=== PATIENT | male | born 1960 | race Caucasian/White ===

== ENCOUNTER 2017-01-16 10:27 | Day surgery (SDC) | payer OTHER ==
[~2017-01-16] VITALS: Ht 185.4 cm; Wt 115.4 kg
[~2017-01-16 10:27] MED LIST: ALPR-138; DIGO0.123; FURO1TAB93; SIMV5TAB32; [UNRECOGNIZED DRUG - OTHER]
[2017-01-16] MEDS ORDERED: CHLORHEXIDINE GLUCONATE 2 % 1 PACK (2 CLOTHS) TOPICAL SCH (11:00)
[2017-01-16] MEDS ORDERED: NS 1000 ML IV SCH (11:00)
[2017-01-16] MEDS ORDERED: POVIDONE IODINE 5% (ANTISEPSIS KIT) 4 APPLICATIONS EACH NARE SCH (11:00)
[2017-01-16] MEDS ORDERED: INSULIN HUMAN REGULAR 1,000 UNITS/10 ML VIAL SQ PRN (11:00)
[2017-01-16] MEDS ORDERED: SODIUM CHLORID 0.9% 500 ML IV PRN (11:00)
[2017-01-16] MEDS ORDERED: VANCOMYCIN 1000 MG/NS 250 ML IV SCH ×2 (11:00)
[2017-01-16] MEDS ORDERED: MUPIROCIN 2% OINT 1 APPLIC/GM SYR NASAL SCH (11:00)
[2017-01-16] MEDS ORDERED: POVIDONE IODINE 5% (ANTISEPSIS KIT) 4 APPLICATIONS EACH NARE PRN (11:00)
[2017-01-16] MEDS ORDERED: ceFAZolin 2 GM PREMIX 50 ML IV SCH (11:00)
[2017-01-16] MEDS ORDERED: METOPROLOL TARTRATE 25 MG TAB PO PRN (11:00)
[2017-01-16] MEDS ORDERED: CHLORHEXIDINE GLUCONATE 2 % 1 PACK (2 CLOTHS) TOPICAL PRN (11:00)
[2017-01-16] MEDS ORDERED: LACTATED RINGER'S 1000 ML IV PRN (11:00)
[2017-01-16 11:17] VITALS: BP 149/94; PULSE 60; RESP 17; TEMP 97.8; O2SAT 95
[2017-01-16 11:30] LABS: AUTOMATED NEUTROPHIL # 4.8 TH/MM3 (1.8-7.7); BASOPHIL # 0.1 TH/MM3 (0-0.2); BASOPHIL % 1.1 % (0.0-2.0); EOSINOPHIL # 0.2 TH/MM3 (0-0.4); EOSINOPHIL % 2.3 % (0.0-4.0); HEMATOCRIT 36.8 % (39.0-51.0); HEMO FLAGS DIFF FINAL; LYMPH % 30.2 % (9.0-44.0); LYMPHOCYTE # 2.6 TH/MM3 (1.0-4.8); MEAN CELL VOLUME 85.4 FL (80.0-100.0); MEAN CORPUSCULAR HEMOGLOBIN 29.1 PG (27.0-34.0); MONO % 9.6 % (0.0-8.0); NEUT % 56.8 % (16.0-70.0); PLATELET COUNT 179 TH/MM3 (150-450); RED BLOOD COUNT 4.32 MIL/MM3 (4.50-5.90); RED CELL DISTRIBUTION WIDTH 15.4 % (11.6-17.2); WHITE BLOOD COUNT 8.5 TH/MM3 (4.0-11.0)
[2017-01-16] MEDS ORDERED: HYDR-3799 PO (11:34)
[2017-01-16] MEDS ORDERED: ATOR1TAB18 PO (11:34)
[2017-01-16] MEDS ORDERED: CLOP75TA PO (11:34)
[2017-01-16] MEDS ORDERED: CLON0.1T PO (11:34)
[2017-01-16] MEDS ORDERED: VITA100036 PO (11:34)
[2017-01-16] MEDS ORDERED: CALC250T PO (11:34)
[2017-01-16] MEDS ORDERED: NOVOINJ3 SQ (11:34)
[2017-01-16] MEDS ORDERED: PRED20 PO (11:34)
[2017-01-16] MEDS ORDERED: CARV25TA PO (11:34)
[2017-01-16] MEDS ORDERED: FURO40TA PO (11:34)
[2017-01-16] MEDS ORDERED: ASPI81TA5 PO (11:34)
[2017-01-16] MEDS ORDERED: POTA-163 PO (11:34)
[2017-01-16] MEDS ORDERED: ISOS120T PO (11:34)
[2017-01-16] MEDS ORDERED: AMLO10TA2 PO (11:34)
[2017-01-16] MEDS ORDERED: LANTUS2P SQ (11:34)
[2017-01-16 11:39] LABS: APTT (PATIENT) 25.1 SEC (24.3-30.1); PROTHROMBIN TIME - PATIENT 10.5 SEC (9.8-11.6)
[2017-01-16 11:55] LABS: BICARBONATE 32.5 MEQ/L (21.0-32.0)
[2017-01-16 11:58] LABS: POTASSIUM 2.8 MEQ/L (3.5-5.1)
[2017-01-16] MEDS ORDERED: ONDANSETRON HCL 4 MG/2 ML VIAL IV PUSH ONE (12:00)
[2017-01-16] MEDS ORDERED: SODIUM CHLORID 0.9% 500 ML INJ 1,000 ML IV ONE (12:00)
[2017-01-16] MEDS ORDERED: PROPOFOL 200 MG/20 ML AMP IV ONE (12:00)
[2017-01-16] MEDS ORDERED: EPINEPHrine HCL (1:1000) 1 MG/ML VIAL IV ONE (12:00)
[2017-01-16] MEDS ORDERED: POTASSIUM CHLOR 20 MEQ PREMIX 200 ML ONE (12:51)
[2017-01-16] MEDS ORDERED: KETAMINE HCL 500 MG/5 ML VIAL ONE (13:03)
[2017-01-16] MEDS: POTASSIUM CHLOR 20 MEQ PREMIX 100 ML IV SCH ×2 (13:15→16:00)
[2017-01-16] MEDS ORDERED: LIDOCAINE HCL 2% 50 ML VIAL ONE (13:17)
[2017-01-16] MEDS ORDERED: VANCOMYCIN 500 MG VIAL ONE (13:17)
[2017-01-16] MEDS ORDERED: HEPARIN-NS/PF INJ 1,000 ML ONE (13:17)
[2017-01-16] MEDS ORDERED: ISOPROTERENOL HCL 1 MG/5 ML AMP ONE (13:23)
[2017-01-16] MEDS ORDERED: SODIUM CHLOR 0.9% 250 ML INJ 250 ML ONE (13:24)
[2017-01-16] MEDS ORDERED: PROPOFOL 200 MG/20 ML AMP ONE ×4 (13:40→15:36)
--- NOTE | 2017-01-16 14:27 | CATHPROC ---
[employer] HIS Report Study Information Study Number Admission Scheduled Start Study Start [id number] Jan 16 2017 10:27AM 01/16/2017 Jan 16 2017 12:45PM [place] [facility] Cardiac Pacer/ICD Admit Source Facility Department Other [facility] - Occupational Therapist Physician and Clinical Staff Initial Ruperto Hsu Canary Raiser Cedric Winkler,RT(R) Other Anesthesia, VIDEO SPECIALIST Recorder Sara Dominguez,LADARIUS Scrub Pacheco Rollins RCIS(BS) Equipment Time Gullet Slitter Description Size Mfg Part Number Used/Scraped 13:24 CONMED LEADWIRE, DEFIBRILLATION PAD 2001M-PC Used [id number] 13:24 MEDLINE INDUSTRIES PACK, CCL CUSTOM * Used *[id number] 13:24 F-Origin PACER TOBIAS, LIMB * 2530 *[id number] Used [id number] 13:24 Phizzbo MEDICAL BLANKET,WARM AIR CCL * Used *[id number] 13:24 ST. TREVA MEDICAL CATHETER, JSN, QUAD FR 5 Used *[id number] 13:24 ST[employer] TREVA MEDICAL CATHETER, JSN, QUAD FR 5 Used *[id number] 13:24 ST[employer] TREVA MEDICAL CATHETER, JSN, QUAD FR 5 Used *[id number] 13:24 ST. TREVA MEDICAL ELECTRODE KIT, SILVANO X SURFACE * [id number] 13:24 [address] TREVA MEDICAL SHEATH, EPS, FR7 FAST CATH FR 7 [id number] Used 13:24 [employer] TREVA MEDICAL SHEATH, EPS, FR7 FAST CATH FR 7 [id number] Used 13:24 [address] TREVA MEDICAL SHEATH, EPS, FR7 FAST CATH FR 7 [id number] Used [place] PAD, ELECTROSURGICAL 13:24 * E7506 *[id number] Used SURGICAL GROUNDING (BLUE) [place] PAD, ELECTROSURGICAL 13:24 * E7506 *[id number] Used SURGICAL GROUNDING (BLUE) History: Allergies Allergy Reaction No Known Allergies nitroglycerin History: Risk Factors Hypertension Dyslipidemia Previous Heart Failure Yes Yes Yes Diabetes Labs Hgb (g/dl) Hct (%) RBC (MIL/MM3) WBC (l/cumm) Platelets (thousands) 11.60-17.00 35.00-51.00 4.00-5.90 4.00-11.00 150.00-450.00 12.0 36 4.3 8.5 179 Glucose (mg/dl) BUN (mg/dl) Creatinine (mg/dl) BUN:Creatinine (1:x) 74.00-106.00 7.00-18.00 0.50-1.30 10.00-20.00 147 34 1.9 17.9 Na (meq/l) K (meq/l) 136.00-145.00 3.50-5.10 144 2.8 INR (PTT:PT) 0.90-1.10 1 Medication Medication Total Dose (Bolus/Oral) Medication Total Dosage/Unit 1% XYLOCAINE 20 mL Medications (Bolus/Oral) Medication Time Given Dosage/Unit Administered By Reason 1% XYLOCAINE 01/16/2017 1:48:53 PM 20 mL Ruperto Jaquez 20 mL 1% XYLOCAINE given in lab by Ruperto Jaquez in Right Groin via Subcutaneous. Ordered by Ruperto Waggoner. Medication (Drip) Medication Time Given Dosage/Unit Concentration/Unit Diluent (ml) Solution ISUPREL 01/16/2017 2:12:11 PM 1 mcg/min 1 mg 250 NaCl .9 1 mcg/min ISUPREL given in lab by Ruperto Jaquez in Right Forearm via Peripheral IV. Pump/Drip Flow = 15 ml/hr using NaCl .9 with a concentration of 1 mg in 250 ml. Ordered by Ruperto Jaquez. Reason: As per physicians verbal order. Initial Case Assessment Cardiovascular HR Rhythm NIBP Chest Pain 62 sr 164/79 0 Edema Present Skin color Skin None Normal Warm Dry Circulatory - Right Pulses Dorsalis Pedis Radial 1 1 Scale (0,1,2,3,4,d) Circulatory - Left Pulses Dorsalis Pedis Radial 1 1 Scale (0,1,2,3,4,d) Circulatory - Lower Extremities Color Lower Right Color Lower Left Normal Normal Neurological State Oriented to time-place- Alert Moves all extremities person Respiration - General Respiration Rate SpO2 (%) (B/min) 20 97 Chronological Log Time Study Chronological Log 13:05:41 Patient arrived via Bed. 13:05:42 Patient Name, D.O.B, / Armband Verified By R.N. 13:05:43 Consent signed by the physician and the patient and verified by the Occupational Therapist staff. 13:05:48 Pre-op and post- op instructions given; patient acknowledges understanding of instructions. 13:06:09 Verbal Stimulation=2 Physical Stimulation=2 Airway=2 Respiration=2 TOTAL=8. (0=absent, 1=li mited, 2=present) 13:06:18 Anesthesia at bedside. Assumes care of patientKevin Barnes 13:06:20 Presedation assessment performed by Occupational Therapist RN. 13:06:21 Patient has been NPO for More than 6Hrs. 13:06:22 Skin Breakdown/none per patient 13:06:31 Patient Warmer Placed on the Table. 13:06:32 Disposable Defibrillator Pads Placed On Patient. 13:06:32 Hardy Prominences Protected 13:19:51 A # 20 IV was noted in the Antecubital (left). Grade = 0 0.9ns kvo KCL infusing on pump fro m Docu. 13:19:51 A # 20 IV was noted in the Forearm (right). Grade = 0 0.9ns kvo 13:19:53 History and physical on the chart or being dictated. 13:19:55 Table restraints applied according to hospital policy 13:19:59 2% CHLORHEXIDINE GLUCONATE WASH AND NASAL SWIPE DONE PRIOR TO PROCEDURE. 13:20:03 Bilateral groins prepped with 2% chlorhexidine, and draped after a 3 minute waiting time. Assessment: Initial Case, HR=62 BPM, Rhythm=sr, EIFC=092/79 mmhg, Chest Pain=0, Edema=None, Col or=Normal, Skin = Warm, Dry Right Pulses: Merritt Ped=1, Radial=1 Left Pulses: Merritt Ped=1, Radial=1 13:20:11 Lower Right Extremities: Color=Normal Lower Left Extremities: Color=Normal Neurological: State=Alert, Ox3, SERRANO Respiration: Resp=20 B/min, SpO2=97 % 13:21:46 MD paged 13:34:09 Reference ECG taken 13:34:15 MD arrived. Time Out. Correct patient, procedure, procedure equipment, site and side verified with physicia n present. Time 13:48:00 concurred by MD, individual staff and VIDEO SPECIALIST. 13:48:06 Immediate Presedation assesment performed by physician. Time Out #2 - Consents verified, patient in correct position, all results are labled and displa yed, safety precautions 13:48:11 taken, antibiotics administered. Time out concurred by MD, individual staff and VIDEO SPECIALIST in procedu re 13:48:43 Case Start 13:48:53 20 mL 1% XYLOCAINE given in lab by Ruperto Jaquez in Right Groin via Subcutaneous. Ordered by Ruperto Jaquez. 13:52:00 Vascular access was obtained in the Fem Vein (right). 13:52:31 Vascular access was obtained in the Fem Vein (right). 13:52:43 Vascular access was obtained in the Fem Vein (right). 13:53:00 A SHEATH, EPS, FR7 FAST CATH FR 7 was advanced into the Fem Vein (right) using the Modified Seldinger technique. 13:53:20 A SHEATH, EPS, FR7 FAST CATH FR 7 was advanced into the Fem Vein (right) using the Modified Seldinger technique. 13:53:28 A SHEATH, EPS, FR7 FAST CATH FR 7 was advanced into the Fem Vein (right) using the Modified Seldinger technique. A CATHETER, JSN, QUAD FR 5 was advanced vis Fem Vein (right) and placed in the HIS. Placement w as visually 13:56:50 confirmed under fluoroscopy. A CATHETER, JSN, QUAD FR 5 was advanced vis Fem Vein (right) and placed in the CS. Placement wa s visually 13:57:01 confirmed under fluoroscopy. A CATHETER, JSN, QUAD FR 5 was advanced vis Fem Vein (right) and placed in the RVA. Placement w as visually 13:57:10 confirmed under fluoroscopy. 14:05:03 EPS in progress. 1 mcg/min ISUPREL given in lab by Ruperto Jaquez in Right Forearm via Peripheral IV. Pump/Drip Flow = 15 ml/hr 14:12:11 using NaCl .9 with a concentration of 1 mg in 250 ml. Ordered by Ruperto Jaquez. Reason: A s per physicians verbal order. 14:20:45 Isuprel gtt discontinued. 14:21:10 EP study completed. 14:21:50 EP Procedure was performed. 14:22:11 EP catheters removed. 14:24:06 Sheaths removed by Vicky . Pressure applied, and hemostasis achieved. 14:26:00 Case End ::43 No case complications noted. 14:26:45 Cine recording checked. 14:27:00 NOTE: This patient is undergoing an additional procedure while still in the Cardiac Cath La b. 14:39:28 Sterile dressing applied to site End Study - Contrast Media Used In Study Contrast Total Opened (mL) Total Used (mL) Total Wasted (mL) Unspecified 0 0 0 End Study - Maximum Contrast Load Max Contrast Load (mL) 305.3 End Study - Radiation Exposure Fluoro Time (minutes) 4.3 End Study - Sheaths Sheaths Pulled By Sheath Hold Time (min) Pacheco Rollins 15 End Study - Patient Disposition Complications Transferred To Interventional Outcome No Occupational Therapist Holding successful
--- NOTE | 2017-01-16 15:59 | EKG ---
Date Performed: 01/16/2017 Time Performed: 11:21:34 PTAGE: 56 years EKG: Sinus rhythm . Left axis deviation RBBB with left anterior fascicular block Possible inferior infarct - age undete rmined Possible LVH with secondary repolarization abnormality Lateral ST-T changes are probably due t o ventricular hypertrophy Abnormal ECG PREVIOUS TRACING : 08/26/2006 14.42 Compared to prior tracing no significant change DOCTOR: Chivo Reese Interpretating Date/Time 01/16/2017 15:58:36
--- NOTE | 2017-01-16 16:13 | CATHPROC ---
[email or web address] HIS Report Study Information Study Number Admission Scheduled Start Study Start [id number] Jan 16 2017 10:27AM 01/16/2017 Jan 16 2017 2:28PM [place] [facility] Electrophysiology Study Admit Source Facility Department Other [facility] - Carbide Grinder Physician and Clinical Staff Initial Ruperto Hsu Sports Athletic Trainer Abena Amaya,ORCHID TRANSPLANTER Sports Athletic Trainer Pacheco Rollins RCIS(BS) Other Anesthesia, INTELLIGENCE ANALYST Other Debbie Haq BSRN Recorder Sara Dominguez RN Scrub Cedric Winkler RT(R) Procedures Performed Procedure Lead Insertion Equipment Time Cocoa Milling Machine Operator Description Size Mfg Part Number Used/Scraped 14:32 AADCO MEDICAL DRAPE, [place] X-RAY 12X17 12X17 D-100 *[id number] Used 14:33 AADPhotoFix UK MEDICAL DRAPE, [place] X-RAY 12X17 12X17 D-100 *[id number] Used MPIS-502-10.0- INTRODUCER SET, 14:33 COOK INC. FR 5 SC-NT-U-SST Used MICROPUNCTURE, STIFFENED *[id number] MPIS-502-10.0- INTRODUCER SET, 14:33 [employer]OOK INC. FR 5 SC-NT-U-SST Used MICROPUNCTURE, STIFFENED *[id number] MPIS-502-10.0- INTRODUCER SET, 14:33 COOK INC. FR 5 SC-NT-U-SST Used MICROPUNCTURE, STIFFENED *[id number] 14:32 CromoUp DRAPE, IOBAN 2 [id number] 26cm x 20cm Used *[id number] TP-1103 14:33 [employer]oUp SUTURE, STRIP PLUS 1/2" * Used *[id number] 14:33 MEDLINE PACER ADHESIVE, MASTISOL 2/3CC 2/3CC 0523-48 Used 14:33 MEDLINE PACER TOBIAS, LIMB * 2530 *[id number] Used [id number] 14:33 MEDLINE PACER PACK, PACER CUSTOM * Used *[id number] 14:33 MEDLINE PACER PEN, SKIN DUAL W/ RULER * Used *[id number] 15:18 [employer] PACER SAFE SHEATH, FR9, 13CM FR 9 [id number] Used PROBE COVER, STERILE [id number] 14:33 [employer] * Used ULTRASOUND W/ GEL *[id number] 14:42 Needle Sponge Count 2 22 Used 14:42 Needle Sponge Count 25 1 Used 14:54 Needle Sponge Count 3 33 Used 15:12 Needle Sponge Count 30 1 Used 14:42 Needle Sponge Count 6 6 Used [id number] *[id number] SUTURE, 0 ETHIBOND [CT1] (CX21D), 8pk SUTURE, 2-0 VICRYL [CT1] ([id number]) SUTURE, 2-0 VICRYL [CT1] (UNX880W) SUTURE, 4-0 VICRYL [PS2] (QJV044X) [id number] 14:33 ALEX MEDICAL BLANKET,WARM AIR CCL * Used *[id number] [facility] PAD, ELECTROSURGICAL 14:33 * E7507 *[id number] Used SURGICAL GROUNDING ORANGE DEFIBRILLATOR, EVERA MRI XT 15:35 VITATRON MEDTRONIC DDE-DDDR [id number] Used DR LEAD, CAPSURE FIX NOVUS, 4076-45CM 15:23 VITATRON MEDTRONIC 45CM Used 45CM *[id number] LEAD, SPRINT QUATTRO SECURE 15:19 VITATRON MEDTRONIC * 6947M-62CM Used 62CM 15:19 VITATRON MEDTRONIC MONITOR, PACEMAKER\\ICD 15349Y Used 0630-2051 14:33 ZOLL MEDICAL HARJINDER. / * Used *07520 Equipment Model, Serial, Lot Number and Expiration Data Description Model Number Serial Number Lot Number Expiration Da te DEFIBRILLATOR, EVERA MRI XT DR [id number] 01-28-2018 LEAD, CAPSURE FIX NOVUS, 45CM 4076-45 [id number] 11-16-2018 LEAD, SPRINT QUATTRO SECURE 6947-62 [id number] 09-09-2018 62CM History: Allergies Allergy Reaction No Known Allergies nitroglycerin History: Risk Factors Hypertension Dyslipidemia Previous Heart Failure Yes Yes Yes Diabetes Medication Medication Total Dose (Bolus/Oral) Medication Total Dosage/Unit 2% XYLOCAINE 50 mL Medications (Bolus/Oral) Medication Time Given Dosage/Unit Administered By Reason 2% XYLOCAINE 01/16/2017 3:00:25 PM 50 mL Ruperto Jaquez As per physicians ve rbal order 50 mL 2% XYLOCAINE given in lab by Ruperto Jaquez via Subcutaneous. Ordered by Ruperto Jaquez. Reas on: As per physicians verbal order. left upper chest Medication (Drip) Medication Time Given Dosage/Unit Concentration/Unit Diluent (ml) Solution ANCEF 01/16/2017 1:10:46 PM 2 g 2 g ANCEF given in lab by Anesthesia, INTELLIGENCE ANALYST via Peripheral IV. Ordered by Ruperto Jaquez. Reason: As per physicians verbal order. VANCOMYCIN DRIP 01/16/2017 1:10:41 PM 1 g 1 g VANCOMYCIN DRIP given in lab by Anesthesia, INTELLIGENCE ANALYST via Peripheral IV. Ordered by Ruperto Jaquez. R ada: As per physicians verbal order. Final Case Assessment Cardiovascular HR NIBP Chest Pain 56 148/83 0 Edema Present Skin color Skin None Normal Warm Dry Circulatory - Right Pulses Dorsalis Pedis Radial 1 1 Scale (0,1,2,3,4,d) Circulatory - Left Pulses Dorsalis Pedis Radial 1 1 Scale (0,1,2,3,4,d) Circulatory - Lower Extremities Color Lower Right Color Lower Left Normal Normal Neurological State Oriented to time-place- Alert Moves all extremities person Respiration - General Respiration Rate SpO2 (%) (B/min) 18 100 Chronological Log Time Study Chronological Log 1 g VANCOMYCIN DRIP given in lab by Mitch, INTELLIGENCE ANALYST via Peripheral IV. Ordered by Jeremy Jaquez Reason: As 13:10:41 per physicians verbal order. 2 g ANCEF given in lab by Anesthesia, INTELLIGENCE ANALYST via Peripheral IV. Ordered by Ruperto Jaquez. Reaso n: As per physicians 13:10:46 verbal order. 14:29:00 NOTE: This patient is undergoing an additional procedure while still in the Cardiac Cath La b. 14:29:15 Anesthesia remains at bedside. 14:30:26 Bovie ground pad applied to: right thigh 14:31:15 2% CHLORHEXIDINE GLUCONATE WASH AND NASAL SWIPE DONE PRIOR TO PROCEDURE. First Sponge And Instrument Count Done by Cedric Winkler, RT(R). 14:34:45 Hypo's: 6, Sponges: 45 total, Bovie/scratch: 3 Sutures: 11, Blades: 2, Instruments: 26, Syveck Patches: 0 14:35:43 Reference ECG taken 14:52:17 MD paged 14:54:28 Reference ECG taken 14:55:10 MD arrived. Time Out. Correct patient, procedure, procedure equipment, site and side verified with physicia n present. Time 15:00:00 concurred by MD, individual staff and INTELLIGENCE ANALYST. Time Out #2 - Consents verified, patient in correct position, all results are labled and displa yed, safety precautions 15:00:19 taken, antibiotics administered. Time out concurred by MD, individual staff and INTELLIGENCE ANALYST in procedu re 15:00:23 Case Start 50 mL 2% XYLOCAINE given in lab by Ruperto Jaquez via Subcutaneous. Ordered by Ruperto Jaquez . Reason: As per 15:00:25 physicians verbal order. left upper chest 15:02:39 Surgical Incision Made. 15:05:36 A pocket was created at the L Upper Chest. 15:13:59 Vascular access was obtained in the Subclav. Vein (Lft. Micropuncture 15:14:26 Dilator exchanged. 15:16:40 2nd Vascular access was obtained in the Subclav. Vein (Lft. micropuncture 15:17:40 A SAFE SHEATH, FR9, 13CM FR 9 was advanced into the Subclav. Vein (Lft using the Modified S eldinger technique. 15:20:08 A LEAD, SPRINT QUATTRO SECURE 62CM * was inserted and positioned in the RV. 15:21:00 Lead placement verified under fluoroscopy 15:21:23 The RV lead impedance and threshold being tested. 15:23:11 The RV lead was sutured to the fascia. 15:24:05 A LEAD, CAPSURE FIX NOVUS, 45CM 45CM was inserted and positioned in the RA. 15:30:00 Lead placement verified under fluoroscopy 15:30:43 The Atrial lead impedance and threshold is being tested. 15:31:51 The Atrial lead was sutured to the fascia. 15:32:00 Two antibiotic sponges put into the surgical pocket. 15:35:58 A DEFIBRILLATOR, EVERA MRI XT DDE-DDDR was connected and placed in the pocket. 15:39:48 Jono powder in pocket Second Sponge And Instrument Count Done by Cedric Winkler, RT(R). 15:42:19 Hypo's: 6, Sponges: 45, Bovie/scratch: 3 Sutures: 11, Blades: 2, Instruments: 26, Syveck Patches: 0 15:43:56 Implant Procedure was performed. 15:44:03 A ICD Implant . (Dual) 15:52:53 The pocket was closed. 15:56:12 DOCU called. Spoke to Harry 15:56:51 Bedside Report will be given. 16:09:49 Case End Final Sponge And Instrument Count Done by Cedric Winkler RT(R). 16:11:00 Hypo's: 6, Sponges: 45, Bovie/scratch: 3 Sutures: 11, Blades: 2, Instruments: 26, Syveck Patches: 0 Assessment: Final Case, HR=56 BPM, SCXM=257/83 mmhg, Chest Pain=0, Edema=None, Color=Normal, Sk in = Warm, Dry Right Pulses: Merritt Ped=1, Radial=1 Left Pulses: Merritt Ped=1, Radial=1 16:11:08 Lower Right Extremities: Color=Normal Lower Left Extremities: Color=Normal Neurological: State=Alert, Ox3, SERRANO Respiration: Resp=18 B/min, NmG2=866 % 16:16:08 Patient moved to stretcher 16:20:14 A sling was placed on the affected arm. 15:39:30 Antibiotic sponges removed from the surgical pocket. End Study - Contrast Media Used In Study Contrast Total Opened (mL) Total Used (mL) Total Wasted (mL) Unspecified 0 0 0 End Study - Radiation Exposure Fluoro Time (minutes) 1.9 End Study - Patient Disposition Complications Transferred To Interventional Outcome No Telemetry Bed successful
[2017-01-16] MEDS ORDERED: TEMAZEPAM 15 MG CAP PO PRN (17:45)
[2017-01-16] MEDS: hydrALAZINE HCL 25 MG TAB PO SCH ×2 (17:59→22:10)
[2017-01-16] MEDS: cloNIDine HCL 0.1 MG TAB PO SCH (17:59)
[2017-01-16] MEDS: oxyCODONE/ACETAMINOPHEN 5 MG/325 MG TAB PO PRN ×2 (18:00→22:10)
[2017-01-16] MEDS ORDERED: MORPHINE SULFATE 4 MG/ML INJ ONE (18:30)
--- NOTE | 2017-01-16 18:51 | RADRPT ---
EXAM DATE/TIME: 01/16/2017 18:07 [place] COMPARISON: No previous studies available for comparison. INDICATIONS : Pneumothorax. Hematoma. Post procedure. MEDICAL HISTORY : None. SURGICAL HISTORY : None. ENCOUNTER: Initial ACUITY: 1 day PAIN SCORE: 4/10 LOCATION: Left chest FINDINGS: The heart size is enlarged. There is a pacing/AICD device in place from the left subclavian approach. The lungs are grossly clear. A pneumothorax is not seen. No effusion is seen. CONCLUSION: 1. Cardiomegaly. 2. Pacing/AICD device in place from the left subclavian approach. Pasquale Kruse MD on January 16, 2017 at 18:49 Board Certified Radiologist. This report was verified electronically.
[2017-01-16] MEDS ORDERED: MORPHINE SULFATE 4 MG/ML INJ IV ONE (19:00)
[2017-01-16 20:00] VITALS: BP 166/93; PULSE 61; RESP 18; TEMP 97.8; O2SAT 95
[2017-01-16] MEDS: ceFAZolin 2 GM PREMIX 50 ML IV SCH (20:45)
[2017-01-16] MEDS: CARVEDILOL 12.5 MG TAB PO SCH (20:45)
[2017-01-16 21:00] VITALS: PULSE 68
[2017-01-16] MEDS: LOW DOSE INSULIN NOVOLOG SUPPLEMENTAL SCALE SQ SCH (21:00)
[2017-01-16] MEDS ORDERED: ATORVASTATIN 80 MG TAB PO SCH (21:00)
[2017-01-16 22:00] VITALS: PULSE 66
[2017-01-16] MEDS ORDERED: GLUCAGON 1 MG/ML VIAL OTHER PRN (22:45)
[2017-01-16] MEDS ORDERED: DEXTROSE 50% IN WATER 50 ML VIAL(D50) IV PUSH PRN (22:45)
[2017-01-16 23:00] VITALS: BP 160/87; PULSE 64; RESP 18; TEMP 97.8; O2SAT 95
[2017-01-17] VITALS (16 sets, daily range): BP systolic 148–175; BP diastolic 86–99; PULSE 58–66; RESP 12–24; TEMP 97.7–98; O2SAT 92–95
[2017-01-17] MEDS ORDERED: VANCOMYCIN INJ 1,000 MG in SODIUM CHLOR 0.9% 250 ML INJ 250 ML IV ONE (01:00)
[2017-01-17] MEDS: oxyCODONE/ACETAMINOPHEN 5 MG/325 MG TAB PO PRN ×2 (01:43→06:46)
[2017-01-17] MEDS ORDERED: cloNIDine HCL 0.1 MG TAB PO SCH (03:45)
[2017-01-17] MEDS ORDERED: MORPHINE SULFATE 4 MG/ML INJ IV PRN (03:45)
[2017-01-17] MEDS: MORPHINE SULFATE 4 MG/ML INJ IV PRN ×3 (03:49→12:35)
[2017-01-17] MEDS ORDERED: hydrALAZINE HCL 25 MG TAB PO SCH (04:45)
[2017-01-17] MEDS: ceFAZolin 2 GM PREMIX 50 ML IV SCH ×2 (04:51→12:38)
[2017-01-17] MEDS: LOW DOSE INSULIN NOVOLOG SUPPLEMENTAL SCALE SQ SCH ×2 (08:00→12:36)
--- NOTE | 2017-01-17 08:11 | EKG ---
Date Performed: 01/16/2017 Time Performed: 18:38:36 PTAGE: 56 years EKG: Sinus rhythm . Left axis deviation IV conduction defect Possible inferior infarct - age undetermined Possible LVH with secondary repolarization abnormality Anterolateral ST-T changes are probably due to ventricular hypertrophy Abnormal ECG Compared to prior tracing no significant change PREVIOUS TRACING : 01/16/2017 11.21 DOCTOR: Jenni Smith Interpretating Date/Time 01/17/2017 08:09:47
--- NOTE | 2017-01-17 08:15 | MR ---
cc: NINA COLLINS DATE: 01/16/2017 INDICATION Congestive heart failure, class II. PROCEDURE PERFORMED 1. Comprehensive electrophysiology study with right atrial and right ventricular pacing and sensing. 2. Coronary sinus stimulation with coronary sinus pacing and sensing. 3. IV isoproterenol administration for tachycardia induction. ACCESS SITE Right femoral vein using ultrasound guidance. MEDICATIONS Isuprel IV. SEDATION Administered by Anesthesia. EQUIPMENT USED Quadripolar catheter x3. COMPLICATIONS None. ESTIMATED BLOOD LOSS Less than 10 cc. METHOD OF HEMOSTASIS Sheath left in place. RESULTS 1. Baseline EKG: Normal sinus rhythm, left axis, right bundle branch block with left anterior fascicular block (QRS 130 milliseconds). 2. Baseline intervals (milliseconds): Baseline cycle length 912, LA 186, QRS 118, QT 436, QTC 457, AH 84, HV 70. 3. Right atrial programmed stimulation: Right atrial programmed stimulation was performed at baseline. AP Wenckebach was 400 milliseconds. No atrial arrhythmias were induced. 4. Coronary sinus stimulation: Coronary sinus stimulation was performed at baseline. No arrhythmias were induced. 5. Right ventricle programmed electrical stimulation: Baseline RVRP 600/260/290. 500/260/290. 400/240/270. Closest coupling intervals: 600/290/180. 500/290/180. 400/270/180. 600/290/210/200. 500/290/210/180. 400/270/210/180. 6. On isoproterenol: RVRP 400/260/290. Closest coupling intervals: 600/290/210/200. 7. Arrhythmias: No inducible atrial arrhythmias. No inducible sustained ventricular arrhythmias. DIAGNOSIS 1. No inducible sustained ventricular arrhythmias. 2. No inducible sustained atrial arrhythmias. 3. HV interval 70 milliseconds. DISPOSITION Mr. Keys will undergo placement of implantable defibrillator. MD PEPE Ramirez/JOSE /3:58 PM /8:02 AM
[2017-01-17] MEDS: cloNIDine HCL 0.1 MG TAB PO SCH ×2 (08:36→12:37)
[2017-01-17] MEDS: CARVEDILOL 12.5 MG TAB PO SCH (08:36)
[2017-01-17] MEDS: hydrALAZINE HCL 25 MG TAB PO SCH ×2 (08:40→12:37)
--- NOTE | 2017-01-17 08:49 | MR ---
cc: NINA COLLINS DATE: 01/16/2017 INDICATION Ischemic cardiomyopathy, congestive heart failure class II, ejection fraction 25% (October 2016). The patient is on maximum tolerated guideline-directed medical therapy. Atrial lead placed for supraventricular tachycardia discrimination. PROCEDURE PERFORMED 1. Placement of Medtronic dual-chamber defibrillator. 2. Testing of Medtronic dual-chamber defibrillator system. ACCESS SITE Left subclavian vein. EQUIPMENT USED Generator: Medtronic model [id number] dual-chamber MRI compatible defibrillator, serial number [id number]. Right atrial lead: Medtronic model 695055, screw-in 45 cm atrial lead, serial number [id number]. Right ventricular lead: Medtronic model 2777N26, 62 cm screw-in right ventricular lead, serial number [id number]. LEAD TESTING Right atrial lead: Pacing threshold 0.8 volts at 0.5 milliseconds. Lead impedance 610 ohms. P-wave 4.8 millivolts. Right ventricular lead: Pacing threshold 0.4 volts at 0.5 milliseconds. Lead impedance 522 ohms. R-wave 9.4 millivolts. Ventricular fibrillation was induced on one occasion and terminated with a single 20 joule shock with an impedance of 36 ohms resulting in sinus rhythm. Parameters: Mode AAIR/DDDR, lower rate 40, upper rate 130. Prepare settings for VF therapy. ESTIMATED BLOOD LOSS Less than 10 cc. COMPLICATIONS None. DIAGNOSIS 1. Successful placement of Medtronic dual-chamber defibrillator. 2. Successful testing of Medtronic dual-chamber defibrillator system. 3. Defibrillation threshold of 20 joules or less. DISPOSITION Mr. Keys will be monitored on telemetry after his procedure. We will continue his current medical program including therapy for congestive heart failure. I will see him back for a wound check and chronic device reprogramming in our office within 2 weeks. He will then follow up with Dr. Whittaker, his primary hardwood faller, in his office for long-term device follow-up. Continue therapy for CHF including beta kirill. JAIRO/ARB not used due to patient's significant renal insufficiency. MD PEPE Ramirez/JOSE /4:04 PM /8:32 AM SALTY
[2017-01-17] MEDS ORDERED: ASPIRIN EC 81 MG TABEC PO SCH (09:00)
[2017-01-17] MEDS ORDERED: CALCIUM CITRATE 600 MG PO SCH (09:00)
[2017-01-17] MEDS ORDERED: CLOPIDOGREL 75 MG TAB PO SCH (09:00)
[2017-01-17] MEDS ORDERED: FUROSEMIDE 40 MG TAB PO SCH (09:00)
[2017-01-17] MEDS ORDERED: predniSONE 20 MG TAB PO SCH (09:00)
[2017-01-17] MEDS ORDERED: CALCIUM CARBONATE 1.25 GM (CA 500 MG) TAB PO SCH (09:00)
[2017-01-17] MEDS ORDERED: ISOSORBIDE MONONITRATE 60 MG TAB PO SCH (09:00)
[2017-01-17] MEDS ORDERED: POTASSIUM CHLORIDE 20 MEQ CONTROLLED RELEASE TAB PO SCH (09:00)
--- NOTE | 2017-01-17 15:42 | PD.CARD.PN ---
Subjective Subjective Remarks No angina or SOB, mild L upper chest tenderness Objective Vital Signs / I&O Vital Signs Date Time Temp Pulse Resp B/P (MAP) Pulse Ox O2 Delivery O2 Flow Rate FiO2 01/17/17 13:00 66 01/17/17 12:09 64 01/17/17 11:21 97.7 58 24 148/86 (106) 92 01/17/17 11:00 66 01/17/17 10:14 66 01/17/17 10:00 63 01/17/17 09:00 66 01/17/17 09:00 64 01/17/17 08:00 60 01/17/17 08:00 63 01/17/17 07:00 66 01/17/17 07:00 97.7 65 12 170/99 (122) 95 01/17/17 06:00 64 01/17/17 05:00 62 01/17/17 04:00 64 01/17/17 03:00 98.0 63 18 175/98 (123) 94 01/17/17 03:00 62 01/17/17 02:00 65 01/17/17 01:00 62 01/17/17 00:00 63 01/16/17 23:00 64 01/16/17 23:00 97.8 64 18 160/87 (111) 95 01/16/17 22:00 66 01/16/17 21:00 68 01/16/17 20:00 97.8 61 18 166/93 (117) 95 01/16/17 20:00 61 01/16/17 16:37 98 Nasal Cannula 2.00 I/O 01/16/17 01/16/17 01/16/17 01/17/17 01/17/17 01/17/17 07:00 15:00 23:00 07:00 15:00 23:00 Intake Total 50 ml 1460 ml Output Total 1050 ml Balance 50 ml 410 ml Intake Oral 960 ml IV Total 50 ml 500 ml Output Urine Total 1050 ml # Bowel Movements 0 Physical Exam GENERAL: In NAD SKIN: Warm and dry. HEAD: Normocephalic. EYES: No scleral icterus. No injection or drainage. NECK: Supple, trachea midline. No JVD or lymphadenopathy. CARDIOVASCULAR: Regular rate and rhythm without murmurs, gallops, or rubs. RESPIRATORY: Breath sounds equal bilaterally. No accessory muscle use. GASTROINTESTINAL: Abdomen soft, non-tender, nondistended. MUSCULOSKELETAL: No cyanosis, or edema. Small pocket hematoma, groin benign Assessment and Plan Problem List: (1) CAD (coronary artery disease) ICD Codes: I25.10 - Atherosclerotic heart disease of [place] coronary artery without angina pectoris (2) CHF (congestive heart failure) ICD Codes: I50.9 - Heart failure, unspecified (3) Ischemic cardiomyopathy ICD Codes: I25.5 - Ischemic cardiomyopathy (4) ICD (implantable cardioverter-defibrillator) battery depletion ICD Codes: Z45.02 - Encounter for adjustment and management of automatic implantable cardiac defibrillator Assessment and Plan Wound stable. ICD evaluation unremarkable. Continue current program, resume Plavix tomorrow. DC home. Wound check and final reprogramming within 2 weeks in our office. Ruperto Jaquez MD Jan 17, 2017 15:42
[2017-01-17] MEDS ORDERED: INSULIN DETEMIR 100 UNITS/ML VIAL SQ SCH (21:00)
== END 2017-01-17 15:12 | disposition home or self-care (01) ==
LOC: HDIC 10:27 → HCAT 10:27 → HCIN 19:53 → HCAT 01-17 15:12
PROVIDERS: ATTEND Internal Medicine Interventional Cardiology
DX: I50.1 Left ventricular failure, unspecified (principal); I49.9 Cardiac arrhythmia, unspecified; I25.5 Ischemic cardiomyopathy; I45.2 Bifascicular block; I47.1 Supraventricular tachycardia; I25.110 Atherosclerotic heart disease of native coronary artery with unstable angina pectoris; E78.5 Hyperlipidemia, unspecified; E11.9 Type 2 diabetes mellitus without complications; Z79.4 Long term (current) use of insulin; Z79.82 Long term (current) use of aspirin; Z87.891 Personal history of nicotine dependence
CPT/HCPCS: 00530; 33249; 71010; 80048; 82948; 85025; 85610; 85730; 93005; 93620; 93623; C1721; C1730; C1895; C1898; J0171; J0690; J1644; J1815; J2270; J2405; J3010; J3370; J3480; J7040; J7050; J7512